=== PATIENT | male | born 2000 | race African-American/Black ===

== ENCOUNTER 2025-09-08 13:27 | Emergency (ER) | payer MEDICAID ==
[~2025-09-08] VITALS: Ht 149.9 cm; Wt 37.0 kg
[2025-09-08 13:35] VITALS: O2SAT 100
[2025-09-08] MEDS ORDERED: DIATR MEGLU/DIATRIZOATE SOLN 30ML ONE (14:24)
[2025-09-08 15:35] VITALS: BP 98/77; PULSE 64; RESP 14; TEMP 36.9; O2SAT 98
== END 2025-09-08 15:37 | disposition home or self-care (01) ==
LOC: ER 13:27
DX: Z43.1 Encounter for attention to gastrostomy (principal)
CPT/HCPCS: 99284; 74018; Q9963